=== PATIENT | male | born 1995 | race Caucasian/White ===

== ENCOUNTER 2018-01-05 14:54 | Emergency (ER) | payer OTHER ==
[~2018-01-05] VITALS: Ht 180.3 cm; Wt 75.3 kg
== END 2018-01-05 22:50 | disposition home or self-care (01) ==
LOC: EDSEX 14:54 → ER 14:54
DX: S06.2X1A Diffuse traumatic brain injury with loss of consciousness of 30 minutes or less, initial encounter (principal); R55 Syncope and collapse; W18.09XA Striking against other object with subsequent fall, initial encounter; Y93.89 Activity, other specified; Y92.89 Other specified places as the place of occurrence of the external cause; Y99.8 Other external cause status